=== PATIENT | female | born 1995 | race Caucasian/White ===

== ENCOUNTER 2024-12-16 04:37 | Day surgery (SDC) | payer OTHER ==
[~2024-12-16] VITALS: Ht 165.1 cm; Wt 64.0 kg
[2024-12-16] VITALS (229 sets, daily range): BP systolic 68–147; BP diastolic 50–104
[2024-12-16] MEDS ORDERED: SODIUM CHLORIDE 0.9% 1,000 ML IV PRN ×3 (07:00→13:55)
[2024-12-16] MEDS ORDERED: diazePAM 5 MG/TAB PO PRN ×2 (07:30→08:30)
[2024-12-16] MEDS ORDERED: PANTOPRAZOLE SODIUM Sesquihydr 40 MG/TAB PO PRN (07:30)
[2024-12-16] MEDS ORDERED: ALBUTEROL SULFATE 2.5 MG VIAL IN PRN (07:30)
[2024-12-16] MEDS ORDERED: SCOPOLAMINE 1.5 MG DIS TD PRN (07:30)
[2024-12-16] MEDS ORDERED: LACTATED RINGER'S 1,000 ML IV PRN ×2 (07:30→09:40)
[2024-12-16] MEDS ORDERED: CYANOCOBALAMIN 500 MCG/TAB ( B12) PO PRN (07:30)
[2024-12-16] MEDS ORDERED: FAMOTIDINE 20 MG/TAB PO PRN (07:30)
[2024-12-16] MEDS ORDERED: cloNIDine HCL 0.1 MG/TAB PO PRN (07:30)
[2024-12-16] MEDS ORDERED: DEXMEDETOMIDINE HCL IN SODIUM 100 ML IV SCH (07:50)
[2024-12-16] MEDS ORDERED: ASCORBIC ACID 4,000 MG in SODIUM CHLORIDE 0.9% 1,000 ML IV SCH (08:00)
[2024-12-16 09:04] LABS: BASO% 0.5 % (0-3); EOS% 1.7 % (0-8); HEMATOCRIT 38.8 % (37.0-47.0); HEMOGLOBIN 12.7 g/dl (12.0-16.0); IMMATURE GRANULOCYTES 0.2 % (0.0-5.0); LYMPH% 49.2 % (15-41); MEAN CELL VOLUME 94.6 fL CALC (80.0-100.0); MEAN CORPUSCULAR HGB CONC 32.7 g/dL CAL (32.0-36.0); MONO% 8.2 % (2-13); NEUT# 2.64 thou/uL (2.00-7.15); NEUT% 40.2 % (42-76); RED BLOOD COUNT 4.1 mill/uL (4.20-5.60); RED CELL DISTRI WIDTH 11.9 % (11.5-15.5)
[2024-12-16 09:14] LABS: ALBUMIN 4.1 g/dL (3.2-5.0); BILIRUBIN, TOTAL 0.4 mg/dL (0.02-1.3); CREATININE 0.6 mg/dL (0.5-1.0); POTASSIUM 4.1 mmol/l (3.5-5.1); TOTAL PROTEIN 6.6 g/dL (6.3-8.2)
[2024-12-16] MEDS ORDERED: ACYCLOVIR400 MG PO (09:31)
[2024-12-16] MEDS ORDERED: POTASSIUM CHLORIDE 20 MEQ/100 ML BAG IV PRN (09:40)
[2024-12-16] MEDS ORDERED: LIDOCAINE HCL 1% (10MG/ML) 100 MG/10 ML MDV IV PRN (09:40)
[2024-12-16] MEDS ORDERED: STERILE WATER FOR IRRIGATION 1,000 ML BTL IR PRN (09:40)
[2024-12-16] MEDS ORDERED: MIDAZOLAM HCL 2 MG/2 ML VIAL IV PRN ×3 (09:40→14:00)
[2024-12-16] MEDS ORDERED: LIDOCAINE HCL 1% (10MG/ML) 100 MG/10 ML MDV VT PRN ×2 (09:40)
[2024-12-16] MEDS ORDERED: ONDANSETRON HCl 4 MG/2 ML SDV IV PRN ×3 (09:40→19:00)
[2024-12-16] MEDS ORDERED: THIAMINE HCL 100 MG/ML 2ML VIAL IV PRN (09:40)
[2024-12-16] MEDS ORDERED: ROCURONIUM BROMIDE 10 MG/ML 5 ML VIAL IV PRN (09:40)
[2024-12-16] MEDS ORDERED: diazePAM 5 MG/TAB VT PRN (09:40)
[2024-12-16] MEDS ORDERED: SUCCINYLCHOLINE CHLORIDE 20 MG/ML 10ML VIAL IV PRN (09:40)
[2024-12-16] MEDS ORDERED: DiphenhydrAMINE HCL 50 MG/ML SDV IV PRN (09:40)
[2024-12-16] MEDS ORDERED: MAGNESIUM SULFATE HEPTAHYDRATE 100 ML IV PRN (09:40)
[2024-12-16] MEDS ORDERED: PROPOFOL 100 ML IV PRN (09:40)
[2024-12-16] MEDS ORDERED: PROPOFOL 10 MG/ML 100ML VIAL IV PRN (09:40)
[2024-12-16] MEDS ORDERED: cloNIDine HCL 0.1 MG/TAB VT PRN (09:40)
[2024-12-16] MEDS ORDERED: NALTREXONE HCL 50 MG/TAB VT PRN (09:40)
[2024-12-16] MEDS ORDERED: OCTREOTIDE ACETATE 100 MCG/VIAL SDV SC PRN (09:40)
[2024-12-16] MEDS ORDERED: cloNIDine HYDROCHLORIDE 100 MCG/ML 10 ML INJ IV PRN (09:40)
[2024-12-16] MEDS ORDERED: KLONOPIN2 MG PO (16:06)
[2024-12-16] MEDS ORDERED: NALTREXONE50 MG PO (16:06)
[2024-12-16] MEDS ORDERED: CLONIDINE0.1 MG PO (16:06)
[2024-12-16] MEDS ORDERED: PROMETHAZINE HCL 12.5 MG in SODIUM CHLORIDE 0.9% 50 ML IV PRN (19:00)
[2024-12-16] MEDS ORDERED: HALOPERIDOL LACTATE 5 MG/ML SDV IV PRN (19:00)
[2024-12-16] MEDS ORDERED: ACETAMINOPHEN 500 MG TAB PO PRN (19:00)
[2024-12-16] MEDS ORDERED: PROMETHAZINE HCL 25 MG in SODIUM CHLORIDE 0.9% 50 ML IV PRN (19:00)
[2024-12-16] MEDS ORDERED: KETOROLAC TROMETHAMINE 30 MG/ML SDV IV PRN (19:00)
[2024-12-16] MEDS ORDERED: ACETAMINOPHEN 1,000 MG/100 ML VIAL IV PRN (19:00)
[2024-12-16] MEDS ORDERED: PATIENT' OWN MED CONTROLLED 1 EA DOSE IV PRN (21:00)
[2024-12-16] MEDS ORDERED: clonazePAM 1 MG/TAB PO PRN (23:00)
[2024-12-16] MEDS ORDERED: cloNIDine HCL 0.1 MG/TAB PO SCH (23:00)
[2024-12-17] MEDS ORDERED: diazePAM 5 MG/TAB PO SCH (00:30)
[2024-12-17] MEDS ORDERED: LORazepam 2 MG/ML IV PRN (00:30)
[2024-12-17] MEDS ORDERED: clonazePAM 1 MG/TAB PO PRN ×2 (04:00→08:00)
[2024-12-17] MEDS ORDERED: NALTREXONE HCL 50 MG/TAB PO SCH (04:00)
[2024-12-17] MEDS ORDERED: cloNIDine HCL 0.1 MG/TAB PO PRN (04:00)
[2024-12-17 05:29] LABS: BASO% 0.2 % (0-3); HEMATOCRIT 33.6 % (37.0-47.0); HEMOGLOBIN 11.5 g/dl (12.0-16.0); IMMATURE GRANULOCYTES 0.2 % (0.0-5.0); LYMPH% 11.5 % (15-41); MEAN CELL VOLUME 90.8 fL CALC (80.0-100.0); MEAN CORPUSCULAR HGB 31.1 pG CALC (26.0-32.0); MEAN CORPUSCULAR HGB CONC 34.2 g/dL CAL (32.0-36.0); MONO% 3.9 % (2-13); NEUT# 4.75 thou/uL (2.00-7.15); NEUT% 84.2 % (42-76); RED BLOOD COUNT 3.7 mill/uL (4.20-5.60); RED CELL DISTRI WIDTH 11.9 % (11.5-15.5)
[2024-12-17 05:44] LABS: ALBUMIN 3.7 g/dL (3.2-5.0); BILIRUBIN, TOTAL 0.5 mg/dL (0.02-1.3); CREATININE 0.6 mg/dL (0.5-1.0); MAGNESIUM 1.9 mg/dL (1.6-2.3); POTASSIUM 3.7 mmol/l (3.5-5.1); TOTAL PROTEIN 6.2 g/dL (6.3-8.2)
[2024-12-17 07:09] VITALS: BP 169/100
[2024-12-17 07:38] VITALS: BP 169/100
[2024-12-17] MEDS ORDERED: cloNIDine HCL 0.1 MG/TAB PO SCH (08:00)
[2024-12-17] MEDS ORDERED: ACETAMINOPHEN 325 MG/TAB PO SCH (08:00)
[2024-12-17] MEDS ORDERED: PANTOPRAZOLE SODIUM Sesquihydr 40 MG/TAB PO SCH (08:00)
[2024-12-17] MEDS ORDERED: ACETAMINOPHEN 500 MG TAB PO PRN (09:00)
[2024-12-17] MEDS ORDERED: Cholecalciferol 2,000 UNIT/TAB PO PRN (09:00)
[2024-12-17] MEDS ORDERED: MAGNESIUM OXIDE 400 MG/TAB PO PRN (09:00)
[2024-12-17] MEDS ORDERED: POTASSIUM CHLORIDE 20 MEQ/TAB PO SCH (09:15)
[2024-12-17] MEDS ORDERED: MAGNESIUM OXIDE 400 MG/TAB PO SCH (13:30)
== END 2024-12-17 17:30 | disposition home or self-care (01) | DRG 897 ==
LOC: ANR 04:37 → MS2 04:37 → ANR 09:00 → MS2 17:32 → ANR 12-17 17:30
PROVIDERS: ATTEND Anesthesiology Critical Care Medicine
DX: F11.20 Opioid dependence, uncomplicated (principal)
CPT/HCPCS: J1100; J1200; J1630; J2354; J2405; J2550; J2704; J3411; J3475; J3480; J3490